=== PATIENT | female | born 2000 | race Caucasian/White ===

== ENCOUNTER 2023-10-28 11:40 | Emergency (ER) | payer OTHER ==
[2023-10-28 11:46] VITALS: BMI 23.2
[2023-10-28] MEDS ORDERED: ACETAMINOPHEN 500 MG TABLET (FP) PO ONE (13:13)
[2023-10-28] MEDS ORDERED: SODIUM CHLORIDE 0.9% 500 ML INFUS.BAG IV ONE (13:14)
[2023-10-28] MEDS ORDERED: ACETAMINOPHEN 500 MG TABLET (FP) ONE (13:33)
[2023-10-28 13:37] LABS: BASO % 0.4 % (0-2.0); EOS % 1.5 % (0-4.5); HEMATOCRIT 28.5 % (32.4-45.2); LYMPH % 12.5 % (8-40); MCH 30.5 pg (25.7-33.7); MCHC 34.9 g/dl (32.0-36.0); MEAN CELL VOLUME 87.3 fl (80-96); MEAN PLT VOLUME 7.7 fl (7.5-11.1); MONO % 8.6 % (3.8-10.2); PLATELET COUNT 276 10^3/uL (134-434); RBC 3.27 M/mm3 (3.60-5.2); RDW 13.8 % (11.6-15.6); WHITE BLOOD COUNT 7.5 K/mm3 (4.0-10.0)
[2023-10-28 13:54] LABS: HCG,QUALITATIVE URINE Positive
[2023-10-28 13:59] LABS: EPI CELLS >36 /uL (0-25.1); HYALINE CASTS 0 /uL (0-3.1); PH,URINE 6.5 (5.0-8.0); URINE APPEARANCE CLEAR; URINE BACTERIA 1191 /uL (0-1359); URINE BILIRUBIN NEGATIVE (NEGATIVE); URINE COLOR YELLOW; URINE GLUCOSE (UA) NEGATIVE (NEGATIVE); URINE KETONE NEGATIVE (NEGATIVE); URINE LEUK ESTERASE 3+ (NEGATIVE); URINE NITRITE NEGATIVE (NEGATIVE); URINE PROTEIN NEGATIVE (NEGATIVE); URINE RBC 7 /uL (0-23.9); URINE UROBILINOGEN 0.2 mg/dL (0.2-1.0); URINE WBC 79 /uL (0-25.8)
[2023-10-28 14:00] LABS: POTASSIUM 4.2 mmol/L (3.5-5.1)
[2023-10-28 14:02] LABS: CALCIUM 8.6 mg/dL (8.5-10.1)
[2023-10-28 14:03] LABS: ALBUMIN 2.9 g/dl (3.4-5.0); BLOOD UREA NITROGEN 4.6 mg/dL (7-18)
[2023-10-28 14:06] LABS: CREATININE 0.4 mg/dL (0.55-1.3)
[2023-10-28 14:07] LABS: BILIRUBIN,TOTAL 0.2 mg/dL (0.2-1); TOT PROT 6.8 g/dl (6.4-8.2)
[2023-10-28] MEDS ORDERED: NITROFURANTOIN MONOHYD/M-CRYST 100 MG CAPSULE PO ONE (14:09)
[2023-10-28 18:20] VITALS: BP 97/57; PULSE 89; RESP 17; TEMP 97.9
== END 2023-10-28 18:15 | disposition home or self-care (01) ==
LOC: JER 11:40
DX: O98.412 Viral hepatitis complicating pregnancy, second trimester (principal); J10.1 Influenza due to other identified influenza virus with other respiratory manifestations; O26.892 Other specified pregnancy related conditions, second trimester; M54.50 Low back pain, unspecified; R07.0 Pain in throat; R09.81 Nasal congestion; Z3A.20 20 weeks gestation of pregnancy; Z20.822 Contact with and (suspected) exposure to COVID-19
CPT/HCPCS: 0241U-QW; 36415; 76801-TC; 76817-TC; 80053; 81003; 84702; 84703; 85025; 87086; 99284-25

== ENCOUNTER 2024-03-03 09:35 | Inpatient (IN) | payer OTHER ==
[2024-03-03] MEDS: LACTATED RINGERS SOLUTION 500 ML IV SCH ×2 (10:15→11:36)
[2024-03-03 11:35] VITALS: BMI 24.4
[2024-03-03 11:58] LABS: BASO % 0.4 % (0-2.0); EOS % 1.3 % (0-4.5); HEMATOCRIT 32.4 % (32.4-45.2); HEMOGLOBIN 11.2 GM/dL (10.7-15.3); INR 0.98 (0.83-1.09); LYMPH % 30.2 % (8-40); MCH 30.9 pg (25.7-33.7); MCHC 34.7 g/dl (32.0-36.0); MEAN CELL VOLUME 88.8 fl (80-96); MEAN PLT VOLUME 7.9 fl (7.5-11.1); MONO % 7.3 % (3.8-10.2); NEUT % 60.8 % (42.8-82.8); PLATELET COUNT 269 10^3/uL (134-434); PROTHROMBIN TIME (PATIENT) 11.3 SEC (9.7-13.0); RBC 3.64 M/mm3 (3.60-5.2); RDW 13.5 % (11.6-15.6); WHITE BLOOD COUNT 7.7 K/mm3 (4.0-10.0)
[2024-03-03 12:01] LABS: ACTIVATED PTT 29.2 SECONDS (25.2-36.5)
[2024-03-03 12:10] LABS: POTASSIUM 4.2 mmol/L (3.5-5.1)
[2024-03-03 12:12] LABS: BLOOD UREA NITROGEN 7.2 mg/dL (7-18); CALCIUM 8.8 mg/dL (8.5-10.1)
[2024-03-03 12:15] LABS: CREATININE 0.4 mg/dL (0.55-1.3)
[2024-03-03] MEDS ORDERED: OXYTOCIN 20 UNITS in 0.9% NS 20 UNIT/1,000 ML INFUS.BAG IV ONE (12:34)
[2024-03-03] MEDS ORDERED: BUTORPHANOL TARTRATE 2 MG/ML VIAL ONE (13:03)
[2024-03-03] MEDS ORDERED: BUTORPHANOL TARTRATE 1 MG/ML VIAL IVPB ONE (13:04)
[2024-03-03] MEDS: PROMETHAZINE HCL 25 MG/1 ML VIAL IVPB PRN (13:10)
[2024-03-03] MEDS: BUTORPHANOL TARTRATE 2 MG/ML VIAL IVPB ONE (13:10)
[2024-03-03] MEDS: LACTATED RINGERS SOLUTION 1,000 ML IV SCH (13:49)
[2024-03-03] MEDS ORDERED: LIDOCAINE HCL 1% PRESERVATIVE FREE - 30ML VIAL ONE (14:39)
[2024-03-03] MEDS ORDERED: MISOPROSTOL 200 MCG TABLET ONE (14:40)
[2024-03-03] MEDS: MISOPROSTOL 200 MCG TABLET PR ONE (14:40)
[2024-03-03] MEDS: OXYTOCIN 20 UNITS in 0.9% NS 20 UNIT/1,000 ML INFUS.BAG IV SCH (15:15)
[2024-03-03] MEDS ORDERED: METHYLERGONOVINE MALEATE 0.2 MG/1 ML AMP IM PRN (15:19)
[2024-03-03] MEDS ORDERED: WITCH HAZEL 50% (TUCKS) 40 PAD/JAR PAD TP PRN (15:19)
[2024-03-03] MEDS ORDERED: BISACODYL 10 MG SUPP.RECT RC PRN (15:19)
[2024-03-03] MEDS ORDERED: BENZOCAINE 20% 57 GM BOTTLE TP PRN (15:19)
[2024-03-03] MEDS ORDERED: oxyCODONE HCL 5 MG TABLET PO PRN (15:19)
[2024-03-03] MEDS ORDERED: BENZOCAINE 28 GM HEMORRHOIDAL OINTMENT TP PRN (15:19)
[2024-03-03] MEDS ORDERED: ACETAMINOPHEN 325 MG TABLET (FP) PO PRN (15:19)
[2024-03-03 17:31] VITALS: RESP 18
[2024-03-03] MEDS: IBUPROFEN 600 MG TABLET (FP) PO PRN (19:53)
[2024-03-04 07:56] LABS: BASO % 0.2 % (0-2.0); EOS % 0.8 % (0-4.5); HEMATOCRIT 30.2 % (32.4-45.2); HEMOGLOBIN 10.4 GM/dL (10.7-15.3); LYMPH % 25.9 % (8-40); MCH 30.3 pg (25.7-33.7); MCHC 34.3 g/dl (32.0-36.0); MEAN CELL VOLUME 88.4 fl (80-96); MEAN PLT VOLUME 8.5 fl (7.5-11.1); MONO % 7.8 % (3.8-10.2); NEUT % 65.3 % (42.8-82.8); PLATELET COUNT 240 10^3/uL (134-434); RBC 3.41 M/mm3 (3.60-5.2); RDW 13.3 % (11.6-15.6); WHITE BLOOD COUNT 12.3 K/mm3 (4.0-10.0)
[2024-03-04] MEDS: SENNOSIDES/DOCUSATE COMBO (SENNA PLUS) TABLET (UD) PO PRN (22:23)
[2024-03-05 09:02] VITALS: BP 100/57; PULSE 83; TEMP 98.1
== END 2024-03-05 12:30 | disposition home or self-care (01) | DRG 560 ==
LOC: JDEL 09:35 → JLDR 11:00 → J3W 16:45
PROVIDERS: ADMIT Obstetrics & Gynecology Obstetrics; ATTEND Obstetrics & Gynecology Obstetrics
PROC: 10E0XZZ Delivery of Products of Conception, External Approach (ICD-10-PCS; principal; 2024-03-03)
PROC: 0KQM0ZZ Repair Perineum Muscle, Open Approach (ICD-10-PCS; 2024-03-03)
DX: O69.81X0 Labor and delivery complicated by cord around neck, without compression, not applicable or unspecified (principal); O70.1 Second degree perineal laceration during delivery; Z3A.39 39 weeks gestation of pregnancy; Z37.0 Single live birth
CPT/HCPCS: 36415; 59409; 80048; 85025; 85610; 85730; 86780; 86850; 86900; 86901